=== PATIENT | female | born 1995 | race Caucasian/White ===

== ENCOUNTER 2023-09-11 10:52 | Inpatient (IN) | payer OTHER ==
[2023-09-11 11:17] VITALS: BMI 49.9
[2023-09-11] MEDS ORDERED: chlordiazePOXIDE HCL 25 MG CAPSULE PO PRN (12:01)
[2023-09-11] MEDS ORDERED: NICOTINE POLACRILEX 2 MG LOZENGE BC PRN (12:13)
[2023-09-11] MEDS ORDERED: MAGNESIUM HYDROX 2400MG/30ML ORAL SUSPENSION 30 ML CUP PO PRN (12:13)
[2023-09-11] MEDS ORDERED: DICYCLOMINE HCL 10 MG CAPSULE PO PRN (12:13)
[2023-09-11] MEDS ORDERED: POLYETHYLENE GLYCOL (HEALTHYLAX) 3350 17 GM PACKET PO PRN (12:13)
[2023-09-11] MEDS ORDERED: guaiFENesin 600 MG TABLET.ER (FP) PO PRN (12:13)
[2023-09-11] MEDS ORDERED: BENZOCAINE/MENTHOL (CHLORASEPTIC ) LOZENGE MM PRN (12:13)
[2023-09-11] MEDS ORDERED: NICOTINE POLACRILEX 2 MG GUM BUC PRN (12:13)
[2023-09-11] MEDS ORDERED: BENZONATATE 200 MG CAPSULE PO PRN (12:13)
[2023-09-11] MEDS ORDERED: IBUPROFEN 400 MG TABLET (FP) PO PRN (12:13)
[2023-09-11] MEDS: chlordiazePOXIDE HCL 25 MG CAPSULE PO ONE (12:49)
[2023-09-11] MEDS: ONDANSETRON *ODT* 4 MG TABLET SL PRN (12:49)
[2023-09-11] MEDS ORDERED: ONDANSETRON *ODT* 4 MG TABLET ONE (12:53)
[2023-09-11] MEDS ORDERED: chlordiazePOXIDE HCL 25 MG CAPSULE ONE (12:53)
[2023-09-11] MEDS: TRIMETHOBENZAMIDE HCL 200MG/2ML INJ IM ONE (16:49)
[2023-09-11] MEDS: chlordiazePOXIDE HCL 25 MG CAPSULE PO SCH (17:38)
[2023-09-11] MEDS: ACETAMINOPHEN 325 MG TABLET (FP) PO PRN (17:39)
[2023-09-11] MEDS: hydrOXYzine PAMOATE 25 MG CAPSULE (FP) PO PRN (19:41)
[2023-09-11] MEDS: METHOCARBAMOL 500 MG TABLET PO PRN (19:41)
[2023-09-11] MEDS: IBUPROFEN 600 MG TABLET (FP) PO PRN (22:18)
[2023-09-11] MEDS: MELATONIN 5 MG TABLETS PO SCH (22:19)
[2023-09-11] MEDS: THIAMINE 100 MG TABLET PO SCH (22:19)
[2023-09-11] MEDS: MAG HYDROX/AL HYDROX/SIMETH 30 ML UNIT-DOSE CUP PO PRN (22:23)
[2023-09-12 09:26] LABS: HEMATOCRIT 39.1 % (32.4-45.2); HEMOGLOBIN 13.4 GM/dL (10.7-15.3); MCH 34.1 pg (25.7-33.7); MCHC 34.2 g/dl (32.0-36.0); MEAN CELL VOLUME 99.8 fl (80-96); MEAN PLT VOLUME 8.3 fl (7.5-11.1); PLATELET COUNT 247 10^3/uL (134-434); RBC 3.92 M/mm3 (3.60-5.2); RDW 13.7 % (11.6-15.6); WHITE BLOOD COUNT 7.4 K/mm3 (4.0-10.0)
[2023-09-12 09:29] LABS: POTASSIUM 3.9 mmol/L (3.5-5.1)
[2023-09-12 09:32] LABS: ALBUMIN 2.8 g/dl (3.4-5.0); CALCIUM 8.1 mg/dL (8.5-10.1)
[2023-09-12 09:35] LABS: CREATININE 0.9 mg/dL (0.55-1.3)
[2023-09-12 09:37] LABS: BILIRUBIN,TOTAL 0.9 mg/dL (0.2-1); TOT PROT 5.7 g/dl (6.4-8.2)
[2023-09-12] MEDS: lamoTRIgine 25 MG TABLET PO SCH (10:34)
[2023-09-12] MEDS: PRENATAL VITAMINS W/ FOLIC ACID TABLET (FP) PO SCH (10:34)
[2023-09-12 15:05] LABS: HIV INTERPRETATION NEGATIVE (NEGATIVE)
[2023-09-12] MEDS: BISMUTH SUBSALICYLATE 524 MG/30 ML PO PRN (17:20)
[2023-09-13] MEDS: chlordiazePOXIDE HCL 25 MG CAPSULE PO SCH (05:31)
[2023-09-13] MEDS: LOPERAMIDE HCL 2 MG CAPSULE PO PRN (17:49)
[2023-09-14] MEDS ORDERED: chlordiazePOXIDE HCL 10 MG CAPSULE PO PRN
[2023-09-14] MEDS: chlordiazePOXIDE HCL 10 MG CAPSULE PO SCH (06:08)
[2023-09-14 08:26] VITALS: BP 134/72; PULSE 60; RESP 16; TEMP 97.7
[2023-09-15] MEDS ORDERED: chlordiazePOXIDE HCL 10 MG CAPSULE PO SCH (05:00)
[2023-09-16] MEDS ORDERED: chlordiazePOXIDE HCL 10 MG CAPSULE PO ONE (05:00)
== END 2023-09-14 09:46 | disposition home or self-care (01) | DRG 775 ==
LOC: YASAS 10:52 → Y3N 12:58
PROVIDERS: ADMIT Allergy & Immunology; ATTEND Surgery
PROC: HZ2ZZZZ Detoxification Services for Substance Abuse Treatment (ICD-10-PCS; principal; 2023-09-11)
DX: F10.230 Alcohol dependence with withdrawal, uncomplicated (principal); F17.210 Nicotine dependence, cigarettes, uncomplicated; F42.9 Obsessive-compulsive disorder, unspecified; F43.10 Post-traumatic stress disorder, unspecified; G40.909 Epilepsy, unspecified, not intractable, without status epilepticus; E66.01 Morbid (severe) obesity due to excess calories; Z68.42 Body mass index [BMI] 45.0-49.9, adult; Z88.1 Allergy status to other antibiotic agents; Z88.2 Allergy status to sulfonamides
CPT/HCPCS: 36415; 80053; 80305; 80307; 81025; 85027; 86780; 86803; 87389; 93005; 93010; Q0162

== ENCOUNTER 2023-12-26 09:40 | Inpatient (IN) | payer OTHER ==
[2023-12-26 10:17] VITALS: BMI 52.4
[2023-12-26] MEDS ORDERED: DICYCLOMINE HCL 10 MG CAPSULE PO PRN (10:54)
[2023-12-26] MEDS ORDERED: LOPERAMIDE HCL 2 MG CAPSULE PO PRN (10:54)
[2023-12-26] MEDS ORDERED: BENZOCAINE/MENTHOL (CHLORASEPTIC ) LOZENGE MM PRN (10:54)
[2023-12-26] MEDS ORDERED: guaiFENesin 600 MG TABLET.ER (FP) PO PRN (10:54)
[2023-12-26] MEDS ORDERED: NALOXONE (NARCAN) HCL 4 MG/0.1 ML SPRAY NS PRN (10:54)
[2023-12-26] MEDS ORDERED: BISMUTH SUBSALICYLATE 262 MG/15 ML BTL PO PRN (10:54)
[2023-12-26] MEDS ORDERED: IBUPROFEN 400 MG TABLET (FP) PO PRN (10:54)
[2023-12-26] MEDS ORDERED: METHOCARBAMOL 500 MG TABLET PO PRN (10:54)
[2023-12-26] MEDS ORDERED: MAGNESIUM HYDROX 2400MG/30ML ORAL SUSPENSION 30 ML CUP PO PRN (10:54)
[2023-12-26] MEDS ORDERED: POLYETHYLENE GLYCOL (HEALTHYLAX) 3350 17 GM PACKET PO PRN (10:54)
[2023-12-26] MEDS ORDERED: ACETAMINOPHEN 325 MG TABLET (FP) PO PRN (10:54)
[2023-12-26] MEDS ORDERED: BENZONATATE 200 MG CAPSULE PO PRN (10:54)
[2023-12-26] MEDS ORDERED: MAG HYDROX/AL HYDROX/SIMETH 30 ML UNIT-DOSE CUP ONE (11:37)
[2023-12-26] MEDS ORDERED: chlordiazePOXIDE HCL 25 MG CAPSULE ONE (11:37)
[2023-12-26] MEDS: chlordiazePOXIDE HCL 25 MG CAPSULE PO SCH (11:39)
[2023-12-26] MEDS: NICOTINE 14 MG/24 HOURS TOPICAL PATCH TD SCH (11:39)
[2023-12-26] MEDS: MAG HYDROX/AL HYDROX/SIMETH 30 ML UNIT-DOSE CUP PO PRN (11:39)
[2023-12-26] MEDS ORDERED: NICOTINE 14 MG/24 HOURS TOPICAL PATCH TD ONE (11:41)
[2023-12-26] MEDS: FAMOTIDINE 20 MG TABLET PO SCH (13:01)
[2023-12-26] MEDS ORDERED: ALBUTEROL SO4 HFA INHALER IH PRN (14:16)
[2023-12-26] MEDS: ONDANSETRON *ODT* 4 MG TABLET SL PRN (14:42)
[2023-12-26] MEDS: hydrOXYzine PAMOATE 25 MG CAPSULE (FP) PO PRN (14:43)
[2023-12-26] MEDS: chlordiazePOXIDE HCL 25 MG CAPSULE PO PRN (14:43)
[2023-12-26] MEDS: IBUPROFEN 600 MG TABLET (FP) PO PRN (22:25)
[2023-12-26] MEDS: MELATONIN 5 MG TABLETS PO SCH (22:26)
[2023-12-26] MEDS: THIAMINE 100 MG TABLET PO SCH (22:26)
[2023-12-27] MEDS ORDERED: LAMOTRIGINE 200 MG PO SCH (10:00)
[2023-12-27] MEDS: lamoTRIgine 100 MG TABLET PO SCH (10:08)
[2023-12-27] MEDS: valACYclovir HCL 500 MG TABLET (FP) PO SCH (10:08)
[2023-12-27] MEDS: PRENATAL VITAMINS W/ FOLIC ACID TABLET (FP) PO SCH (10:09)
[2023-12-27 11:49] LABS: POTASSIUM 3.6 mmol/L (3.5-5.1)
[2023-12-27 11:55] LABS: HEMATOCRIT 38.4 % (32.4-45.2); HEMOGLOBIN 13.1 GM/dL (10.7-15.3); MCHC 34.1 g/dl (32.0-36.0); MEAN CELL VOLUME 99.8 fl (80-96); MEAN PLT VOLUME 8.3 fl (7.5-11.1); PLATELET COUNT 288 10^3/uL (134-434); RBC 3.85 M/mm3 (3.60-5.2); RDW 13.9 % (11.6-15.6); WHITE BLOOD COUNT 6.2 K/mm3 (4.0-10.0)
[2023-12-27 12:00] LABS: ALBUMIN 2.9 g/dl (3.4-5.0)
[2023-12-27 12:02] LABS: CALCIUM 8.4 mg/dL (8.5-10.1)
[2023-12-27 12:03] LABS: CREATININE 0.8 mg/dL (0.55-1.3)
[2023-12-27 12:04] LABS: BILIRUBIN,TOTAL 0.5 mg/dL (0.2-1)
[2023-12-27 12:05] LABS: TOT PROT 5.8 g/dl (6.4-8.2)
[2023-12-27] MEDS: FLU VACCINE (FLULAVAL) PF 45 MCG/0.5 ML SYRINGE 2024-2025 IM ONE (12:06)
[2023-12-28 00:19] LABS: HIV INTERPRETATION NEGATIVE (NEGATIVE)
[2023-12-28] MEDS: chlordiazePOXIDE HCL 25 MG CAPSULE PO SCH (05:43)
[2023-12-28 09:26] VITALS: BP 123/69; PULSE 72; RESP 18; TEMP 98.2
[2023-12-28] MEDS: NALOXONE (NYS OPIOID OVERDOSE PROGRAM) 4 MG/0.1 ML SPRAY NS SCH (11:42)
[2023-12-29] MEDS ORDERED: chlordiazePOXIDE HCL 10 MG CAPSULE PO PRN
[2023-12-29] MEDS ORDERED: chlordiazePOXIDE HCL 10 MG CAPSULE PO SCH (05:00)
[2023-12-30] MEDS ORDERED: chlordiazePOXIDE HCL 10 MG CAPSULE PO SCH (05:00)
[2023-12-31] MEDS ORDERED: chlordiazePOXIDE HCL 10 MG CAPSULE PO ONE (05:00)
== END 2023-12-28 11:46 | disposition left against medical advice (07) | DRG 770 ==
LOC: YASAS 09:40 → Y3N 11:41
PROVIDERS: ADMIT Allergy & Immunology; ATTEND Surgery
PROC: HZ2ZZZZ Detoxification Services for Substance Abuse Treatment (ICD-10-PCS; principal; 2023-12-26)
DX: F10.230 Alcohol dependence with withdrawal, uncomplicated (principal); F17.210 Nicotine dependence, cigarettes, uncomplicated; G40.909 Epilepsy, unspecified, not intractable, without status epilepticus; J45.909 Unspecified asthma, uncomplicated; K21.9 Gastro-esophageal reflux disease without esophagitis; Z88.2 Allergy status to sulfonamides; Z88.1 Allergy status to other antibiotic agents
CPT/HCPCS: 36415; 80053; 80305; 80307; 81025; 85027; 86780; 86803; 87389; 90656; 93005; 93010; G0008; Q0162

== ENCOUNTER 2024-02-20 15:09 | Inpatient (IN) | payer OTHER ==
[2024-02-20 15:54] VITALS: BMI 54.9
[2024-02-20] MEDS ORDERED: BENZOCAINE/MENTHOL (CHLORASEPTIC ) LOZENGE MM PRN (16:54)
[2024-02-20] MEDS ORDERED: LOPERAMIDE HCL 2 MG CAPSULE PO PRN (16:54)
[2024-02-20] MEDS ORDERED: POLYETHYLENE GLYCOL (HEALTHYLAX) 3350 17 GM PACKET PO PRN (16:54)
[2024-02-20] MEDS ORDERED: BENZONATATE 200 MG CAPSULE PO PRN (16:54)
[2024-02-20] MEDS ORDERED: BISMUTH SUBSALICYLATE 524 MG/30 ML PO PRN (16:54)
[2024-02-20] MEDS ORDERED: MAGNESIUM HYDROX 2400MG/30ML ORAL SUSPENSION 30 ML CUP PO PRN (16:54)
[2024-02-20] MEDS ORDERED: guaiFENesin 600 MG TABLET.ER (FP) PO PRN (16:54)
[2024-02-20] MEDS ORDERED: ONDANSETRON *ODT* 4 MG TABLET SL PRN (16:54)
[2024-02-20] MEDS ORDERED: NICOTINE POLACRILEX 2 MG GUM BUC PRN (16:54)
[2024-02-20] MEDS ORDERED: NALOXONE (NARCAN) HCL 4 MG/0.1 ML SPRAY NS PRN (16:54)
[2024-02-20] MEDS ORDERED: MAG HYDROX/AL HYDROX/SIMETH 30 ML UNIT-DOSE CUP PO PRN (16:54)
[2024-02-20] MEDS ORDERED: DICYCLOMINE HCL 10 MG CAPSULE PO PRN (16:54)
[2024-02-20] MEDS ORDERED: ACETAMINOPHEN 325 MG TABLET (FP) PO PRN (16:54)
[2024-02-20] MEDS ORDERED: IBUPROFEN 600 MG TABLET (FP) PO PRN (16:54)
[2024-02-20] MEDS: diazePAM 5 MG TABLET PO SCH (18:00)
[2024-02-20] MEDS ORDERED: diazePAM 5 MG TABLET ONE (19:26)
[2024-02-20] MEDS: diazePAM 5 MG TABLET PO PRN (19:31)
[2024-02-20] MEDS: MELATONIN 5 MG TABLETS PO SCH (22:29)
[2024-02-20] MEDS: THIAMINE 100 MG TABLET PO SCH (22:29)
[2024-02-21] MEDS ORDERED: diazePAM 5 MG TABLET ONE ×3 (00:27→11:17)
[2024-02-21] MEDS ORDERED: METHOCARBAMOL 500 MG TABLET ONE (02:46)
[2024-02-21] MEDS: hydrOXYzine PAMOATE 25 MG CAPSULE (FP) PO PRN (02:46)
[2024-02-21] MEDS: METHOCARBAMOL 500 MG TABLET PO PRN (02:46)
[2024-02-21] MEDS ORDERED: hydrOXYzine PAMOATE 25 MG CAPSULE (FP) PO ONE ×2 (02:46→02:47)
[2024-02-21] MEDS ORDERED: IBUPROFEN 400 MG TABLET (FP) PO ONE (05:44)
[2024-02-21] MEDS: IBUPROFEN 400 MG TABLET (FP) PO PRN (05:45)
[2024-02-21] MEDS: PRENATAL VITAMINS W/ FOLIC ACID TABLET (FP) PO SCH (10:06)
[2024-02-21] MEDS: NICOTINE 14 MG/24 HOURS TOPICAL PATCH TD SCH (10:06)
[2024-02-21] MEDS ORDERED: PRENATAL VITAMINS W/ FOLIC ACID TABLET (FP) PO ONE (11:18)
[2024-02-21 18:05] VITALS: RESP 16
[2024-02-21 20:31] VITALS: BP 143/73; PULSE 84; TEMP 97.8
[2024-02-21 20:54] LABS: HEMATOCRIT 40.6 % (32.4-45.2); HEMOGLOBIN 13.6 GM/dL (10.7-15.3); MCH 33.7 pg (25.7-33.7); MCHC 33.6 g/dl (32.0-36.0); MEAN CELL VOLUME 100.2 fl (80-96); MEAN PLT VOLUME 8.3 fl (7.5-11.1); PLATELET COUNT 285 10^3/uL (134-434); RBC 4.05 M/mm3 (3.60-5.2); RDW 13.9 % (11.6-15.6); WHITE BLOOD COUNT 5.6 K/mm3 (4.0-10.0)
[2024-02-21 20:58] LABS: CHLORIDE 106 mmol/L (98-107); POTASSIUM 3.8 mmol/L (3.5-5.1); SODIUM 139 mmol/L (136-145)
[2024-02-21] MEDS: NALOXONE (NYS OPIOID OVERDOSE PROGRAM) 4 MG/0.1 ML SPRAY NS SCH (21:02)
[2024-02-21 21:05] LABS: ALBUMIN 2.9 g/dl (3.4-5.0); CALCIUM 8.5 mg/dL (8.5-10.1)
[2024-02-21 21:06] LABS: ANION GAP 8 mmol/L (4-13); BLOOD UREA NITROGEN 12.6 mg/dL (7-18); CO2 25 mmol/L (21-32); GLUCOSE,RANDOM 116 mg/dL (74-106)
[2024-02-21 21:08] LABS: CREATININE 0.8 mg/dL (0.55-1.3); SGPT/ALT 13 U/L (13-61)
[2024-02-21 21:09] LABS: SGOT/AST 15 U/L (15-37)
[2024-02-21 21:10] LABS: ALK PHOS 83 U/L (45-117); BILIRUBIN,TOTAL 0.4 mg/dL (0.2-1); TOT PROT 6.2 g/dl (6.4-8.2)
[2024-02-22] MEDS ORDERED: diazePAM 5 MG TABLET PO SCH (06:00)
[2024-02-23] MEDS ORDERED: diazePAM 5 MG TABLET PO SCH (06:00)
[2024-02-24] MEDS ORDERED: diazePAM 5 MG TABLET PO ONE (06:00)
== END 2024-02-21 21:05 | disposition left against medical advice (07) | DRG 770 ==
LOC: YASAS 15:09 → Y6N 02-21 13:02
PROVIDERS: ADMIT Allergy & Immunology; ATTEND Allergy & Immunology
PROC: HZ2ZZZZ Detoxification Services for Substance Abuse Treatment (ICD-10-PCS; principal; 2024-02-21)
DX: F10.230 Alcohol dependence with withdrawal, uncomplicated (principal); F17.210 Nicotine dependence, cigarettes, uncomplicated; F39 Unspecified mood [affective] disorder; F41.9 Anxiety disorder, unspecified; G40.909 Epilepsy, unspecified, not intractable, without status epilepticus; J45.909 Unspecified asthma, uncomplicated; Z88.2 Allergy status to sulfonamides; Z88.1 Allergy status to other antibiotic agents
CPT/HCPCS: 36415; 80053; 80307; 85027; 86780; 93005; 93010